=== PATIENT | male | born 1990 | race Caucasian/White ===

== ENCOUNTER 2017-08-30 03:19 | Emergency (ER) | payer SELFPAY ==
[~2017-08-30] VITALS: Ht 177.8 cm; Wt 127.0 kg
[2017-08-30 05:03] VITALS: BP 137/99
== END 2017-08-30 09:49 | disposition home or self-care (01) ==
LOC: ER 07:13
DX: F41.9 Anxiety disorder, unspecified (principal); F17.210 Nicotine dependence, cigarettes, uncomplicated; F12.10 Cannabis abuse, uncomplicated
CPT/HCPCS: 93005; 99284